=== PATIENT | male | born 1945 | race Caucasian/White ===

== ENCOUNTER → 2018-07-01 | Outpatient (CLI) | payer MEDICARE, OTHER ==
[~2018-07-01] MED LIST: FINA5 PO
== END | disposition home or self-care (01) ==
LOC: PLD 10:59 → LAB SHORT 10:59
DX: D22.71 Melanocytic nevi of right lower limb, including hip (principal)
CPT/HCPCS: 88305

== ENCOUNTER 2019-12-13 11:51 | Day surgery (SDC) | payer MEDICARE, OTHER ==
[~2019-12-13] VITALS: Ht 175.3 cm; Wt 78.4 kg
[2019-12-13] MEDS ORDERED: NAPR220 (12:40)
[2019-12-13] MEDS ORDERED: OMEPRAZOLE20 MG (12:41)
== END 2019-12-13 14:16 | disposition home or self-care (01) ==
LOC: ORSCSDS 11:51
PROVIDERS: Internal Medicine Gastroenterology
PROC: 0DBM8ZX Excision of Descending Colon, Via Natural or Artificial Opening Endoscopic, Diagnostic (ICD-10-PCS; principal; 2019-12-13 13:00)
PROC: 0DBH8ZX Excision of Cecum, Via Natural or Artificial Opening Endoscopic, Diagnostic (ICD-10-PCS; principal; 2019-12-13 13:00)
DX: Z12.11 Encounter for screening for malignant neoplasm of colon (principal); D12.0 Benign neoplasm of cecum; D12.4 Benign neoplasm of descending colon; K64.8 Other hemorrhoids; K57.30 Diverticulosis of large intestine without perforation or abscess without bleeding; Z86.010 Personal history of colon polyps
CPT/HCPCS: 88305; J2704; J7120

== ENCOUNTER 2022-02-21 11:06 | Day surgery (SDC) | payer MEDICARE ==
[~2022-02-21] VITALS: Ht 175.3 cm; Wt 77.5 kg
[~2022-02-21 11:06] MED LIST changes: +NAPR220; +OMEPRAZOLE20 MG
--- NOTE | 2022-02-21 11:22 | NUR ---
02/21/22 1122 COURTNEY VEALZQUEZ TETRACAINE DROP INSTILLED AT 1121. PLEDGETT INSERTED AT 1122
== END 2022-02-21 12:58 | disposition home or self-care (01) ==
LOC: ORSCSDS 11:06
PROVIDERS: Ophthalmology
PROC: 08RK3JZ Replacement of Left Lens with Synthetic Substitute, Percutaneous Approach (ICD-10-PCS; principal; 2022-02-21 12:30)
DX: H25.12 Age-related nuclear cataract, left eye (principal); I10 Essential (primary) hypertension; K21.9 Gastro-esophageal reflux disease without esophagitis; Z79.899 Other long term (current) drug therapy
CPT/HCPCS: J2001; J2250; J3010; J3301; J7040; V2632

== ENCOUNTER → 2023-10-16 | Outpatient (CLI) | payer MEDICARE | END | disposition home or self-care (01) | LOC: LAB 12:59 → LAB SHORT 12:59 | DX: R30.0 Dysuria (principal) | CPT/HCPCS: 87086 ==

== ENCOUNTER → 2024-10-18 | Outpatient (CLI) | payer MEDICARE | END | disposition home or self-care (01) | LOC: LAB 07:37 → LAB SHORT 07:37 | DX: L60.2 Onychogryphosis (principal); B35.1 Tinea unguium | CPT/HCPCS: 88305; 88312 ==

== ENCOUNTER 2025-07-29 11:52 | Day surgery (SDC) | payer MEDICARE ==
[~2025-07-29] VITALS: Ht 175.3 cm; Wt 78.3 kg
[~2025-07-29 11:52] MED LIST changes: +Glycopyrrolate 0.2 MG/ML 1MLVIAL ONE; +Metrogel 1% 6060 GM; +Ondansetron HCl 2 MG / ML 2ML Vial ONE; +Prilosec10 M1 PO; +TAMS.4ER PO; +ePHEDrine Sulfate 50 MG/ML 1ML Injection ONE
[2025-07-29] MEDS ORDERED: TAMS.4ER (12:07)
[2025-07-29] MEDS ORDERED: GEMTESA75 MG (12:07)
[2025-07-29] MEDS ORDERED: AREDS 2 (12:08)
[2025-07-29] MEDS ORDERED: METAMUCIL174 GM (12:08)
[2025-07-29] MEDS ORDERED: D3 (12:08)
[2025-07-29 16:11] VITALS: BP 123/73
== END 2025-07-29 15:45 | disposition home or self-care (01) ==
LOC: ORSCSDS 11:52
PROVIDERS: Internal Medicine Gastroenterology
PROC: 0DBL8ZX Excision of Transverse Colon, Via Natural or Artificial Opening Endoscopic, Diagnostic (ICD-10-PCS; principal; 2025-07-29 13:15)
PROC: 0DBH8ZX Excision of Cecum, Via Natural or Artificial Opening Endoscopic, Diagnostic (ICD-10-PCS; principal; 2025-07-29 13:15)
DX: Z12.11 Encounter for screening for malignant neoplasm of colon (principal); D12.0 Benign neoplasm of cecum; D12.3 Benign neoplasm of transverse colon; Z86.0101 Personal history of adenomatous and serrated colon polyps; G47.33 Obstructive sleep apnea (adult) (pediatric); I10 Essential (primary) hypertension; Z79.899 Other long term (current) drug therapy
CPT/HCPCS: 88305; J2003; J2405; J2704; J7120